=== PATIENT | female | born 1990 | race African-American/Black ===

== ENCOUNTER 2022-05-20 03:03 | Emergency (ER) | payer MEDICAID ==
[~2022-05-20] VITALS: Ht 170.2 cm; Wt 59.4 kg
[2022-05-20 03:11] VITALS: BP 104/69
[2022-05-20 05:05] LABS: CLARITY URINE CLOUDY (CLEAR); COLOR URINE DARK YELLOW (YELLOW); KETONES URINE 1+ (NEGATIVE); LEUKOCYTE ESTERASE URINE 2+ (NEGATIVE); NITRITE URINE POSITIVE (NEGATIVE); OCCULT BLOOD URINE 3+ (NEGATIVE); PH URINE 5.5 (4.5-8.0); PROTEIN URINE 1+ (NEGATIVE); SPECIFIC GRAVITY URINE 1.023 (1.005-1.030)
[2022-05-20] MEDS ORDERED: CEFTRIAXONE SODIUM 1 G/VIAL IM ONE (05:30)
[2022-05-20] MEDS ORDERED: LIDOCAINE HCL 1% 20ML VIAL (Pyxis) INJ INFIL ONE (05:30)
[2022-05-20] MEDS ORDERED: HYDROCODONE/ACETAMINOPHEN 5/325MG TABLET PO ONE (05:30)
[2022-05-20] MEDS ORDERED: HYDR-4001 MT (05:33)
[2022-05-20] MEDS ORDERED: PYR200 MT (05:33)
[2022-05-20] MEDS ORDERED: IBUP-2029 MT (05:33)
[2022-05-20] MEDS ORDERED: CEPH500C2 MT (05:33)
== END 2022-05-20 06:20 | disposition home or self-care (01) ==
LOC: ER 03:23
DX: N39.0 Urinary tract infection, site not specified (principal); Z79.899 Other long term (current) drug therapy; R39.15 Urgency of urination; R30.0 Dysuria
CPT/HCPCS: 81003; 81025; 87077; 87086; 87186; 96372; 99283; J0696